=== PATIENT | female | born 1995 | race Caucasian/White ===

== ENCOUNTER 2016-09-07 13:29 | Day surgery (SDC) | payer BC ==
--- NOTE | ~2016-09-07 | OP ---
Record Of Operation [facility] [address] [place]. [address] NAME: TREV STEWART : 89 STATUS : [facility]#: [id number] AGE: 20 ADM/REG DATE : 09/07/16 MR#: [id number] REPORT SERV DATE: 09/07/16 DICTATED BY: WILY GROSS DATE: 09/07/16 REPORT STATUS : Draft TRANSCRIBED BY: MODL DATE: 09/07/16 DATE OF PROCEDURE: 09/07/2016 PREOPERATIVE DIAGNOSIS: Left radial head fracture. POSTOPERATIVE DIAGNOSIS: Left radial head fracture. PROCEDURE: Left radial head arthroplasty. SURGEON: Wily Gross M.D. ANESTHESIA: General. COMPLICATIONS: None. ESTIMATED BLOOD LOSS: Minimal. IMPLANTS: Acumed radial head replacement, size 22 head, 0 offset stem size 7. INDICATIONS: Ms. Stewart is a 20-year-old female who sustained the above injury after fall while jumping over table, had a displaced comminuted radial head fracture, I felt surgery ORIF versus replacement was indicated. Risks and benefits were discussed. DESCRIPTION OF PROCEDURE: The patient was identified in the preoperative area. Informed consent was performed and documented. Surgical site was signed. She was taken back to the operative suite, placed in supine position and general anesthesia was administered. She was turned to her left upper extremity, prepped and draped in a normal sterile fashion. Time- out was performed and documented. Antibiotics were given at room time. I marked out anticipated incision, exsanguinated the arm, raised tourniquet to 250 mmHg. I made a curvilinear incision lateral aspect of her left elbow, dissected down, and then split the fascia at the midportion of radial head to the lateral condyle, placed a Gelpi retractor, readily identified the fracture, one of the fragments had gone through right knee anterior capsule, this was approximately 50% of the joint, the other 50% was also knocked off, comminuted, and depressed and unstable. Considering the options, did not feel screw fixation would be optimal nor plate fixation given the prominence of the bulkiness of the plate in her age activity level and rather given the fracture pattern for arthroplasty would be the best option. Measured the size of the head which was approximally just slightly smaller than 24, we selected a 22 size head, then used a coplanar and the broach to gain access to the canal up to 6 and then followed by 7, did perform a sagittal saw cut removing an extra few millimeters after all trial. I then trialled once again to give range of motion, full flexion and extension was noted with no superior rebound and extension, good pronation and supination, and felt stable. We were satisfied with the x-ray position as well. Therefore, irrigated and then selected our implant with the wrist in a neutral position and the laser light facing laterally, impacted it into and reduced the joint, again took her through full range of motion, flexion, extension, pronation, and supination and did not feel any binding or rebound, took images, and we were satisfied with the position and Record Of Operation [address] [address] NAME: TREV STEWART : 89 STATUS : [facility] PAT#: [id number] AGE: 20 ADM/REG DATE : 09/07/16 MR#: [id number] REPORT SERV DATE: 09/07/16 DICTATED BY: WILY GROSS DATE: 09/07/16 REPORT STATUS : Draft TRANSCRIBED BY: CAMPOS DATE: 09/07/16 size. Irrigated once again. The elbow had good stability, medial and laterally, then closed with 3-0 Ethibond, 3-0 Vicryl, 3-0 Monocryl. Instilled 0.5% Marcaine plain, Steri- Strips, sterile dressing, and posterior splint. The patient tolerated the procedure well, was taken to recovery room in stable condition. DISCHARGE CONDITION: Satisfactory. DISCHARGE INSTRUCTIONS: The patient was given narcotic analgesics for pain, printed instructions regarding care of dressing, and followup appointment. We will see her back in 10 to 14 days. We will have her see Occupational Therapy in 3 to 5 days to begin to work on range of motion. JAYME/CAMPOS Wily Gross M.D. / [id number] CC: Wily Gross M.D.
[~2016-09-07 13:29] MED LIST: NORCO1 TA1 PO; PROAIR HFA INH; [UNRECOGNIZED DRUG - OTHER] PO
== END 2016-09-07 18:52 | disposition home or self-care (01) ==
LOC: SDC 13:29
PROVIDERS: Surgery Surgery of the Hand
PROC: 0RUK0JZ Supplement Left Shoulder Joint with Synthetic Substitute, Open Approach (ICD-10-PCS; principal; 2016-09-07 15:15)
DX: S52.122A Displaced fracture of head of left radius, initial encounter for closed fracture (principal); W17.89XA Other fall from one level to another, initial encounter; Y93.39 Activity, other involving climbing, rappelling and jumping off; J45.909 Unspecified asthma, uncomplicated; L30.9 Dermatitis, unspecified; Z79.899 Other long term (current) drug therapy; Z77.22 Contact with and (suspected) exposure to environmental tobacco smoke (acute) (chronic); Z98.82 Breast implant status
CPT/HCPCS: 76000; 84703; 88304; 88311; A9270-GY; C1776; J0690; J2175; J2250; J2270; J2405; J2710; J3010